=== PATIENT | female | born 1945 | race Caucasian/White ===

== ENCOUNTER 2017-04-24 21:27 | Emergency (ER) | payer MEDICARE ==
[2017-04-24] MEDS ORDERED: Lidocaine 1% w/Epinephrine 1:100K 30 ML VIAL ONE (22:29)
[2017-04-24] MEDS ORDERED: Neosporin Ophth Soln 10 ml Bottle ONE (22:58)
[2017-04-24] MEDS ORDERED: Bacitracin Zinc 1 Packet ONE (23:00)
--- NOTE | 2017-04-25 07:44 | CT ---
PRELIMINARY REPORT/[facility]/EMERGENCY AFTER HOURS PROCEDURE: EXAM: CT Head Without Intravenous Contrast CLINICAL HISTORY: 71 years old, female; Injury or trauma; Fall; Injury details: Lac to lt supraorbital area. TECHNIQUE: Axial computed tomography images of the head/brain without intravenous contrast. COMPARISON: No relevant prior studies available. FINDINGS: Brain: Mild volume loss No hemorrhage. Mild white matter disease. No edema. Presumed left parietal p arafalcine meningioma measuring 8 mm Ventricles: Unremarkable. No ventriculomegaly. Bones/joints: Unremarkable. No acute fracture. Soft tissues: Unremarkable. Sinuses: Mild mucosal thickening. No acute sinusitis. Mastoid air cells: Unremarkable as visualized. No mastoid effusion. IMPRESSION: No intracranial hemorrhage.Please see discussion above. Thank you for allowing us to participate in the care of your patient. Dictated and Authenticated by: Severino Eckert MD 04/24/2017 10:42 PM Central Time ([place] \T\ Jim) FINAL REPORT CT OF THE BRAIN WITHOUT CONTRAST: Date: 04/24/[address] was done following trauma. Axial slices were done, as well as coronal and sagittal reconstructions. There were no prior exams available for comparison. FINDINGS: No intracranial bleeding or extra-axial hematoma seen. Ventricular sizes are normal. There are some small amounts of patchy hypolucency in the deep white matter that is probably due to chronic ischemi c change. A small acute CVA would be missed against this background. There is an 8-10 mm calcified mass density along the left side of the falx cerebri in the parietal r egion. This may be a small, calcified meningioma. The calvarium appears intact. There is no sign of skull fracture. The sphenoid sinus shows no air fl uid level and the mastoid air cells are clear. There is considerable mucosal thickening in the ethmo id sinuses. IMPRESSION: 1. No acute traumatic intracranial findings. 2. Changes consistent with chronic microvascular ischemia. 3. 8-10 mm calcified left parietal parafalcine mass. This is most likely a small meningioma. 4. Mucosal thickening in the ethmoid sinuses. Report in agreement with preliminary reading by vRjoyce. POS: HOME
== END 2017-04-24 23:14 | disposition home or self-care (01) ==
LOC: BURERS 21:27
DX: S06.9X1A Unspecified intracranial injury with loss of consciousness of 30 minutes or less, initial encounter (principal); S01.112A Laceration without foreign body of left eyelid and periocular area, initial encounter; Z79.899 Other long term (current) drug therapy; Z87.891 Personal history of nicotine dependence; W19.XXXA Unspecified fall, initial encounter
CPT/HCPCS: 12013; 70450; 93005; J2001

== ENCOUNTER 2020-01-03 16:03 | Inpatient (IN) | payer MEDICARE ==
[2020-01-03] MEDS ORDERED: Docusate 100 MG CAP PO PRN (20:29)
[2020-01-03] MEDS: Docusate 100 MG CAP PO SCH (22:03)
[2020-01-03] MEDS: Metoprolol Tartrate 25 MG TAB PO SCH (22:03)
[2020-01-03] MEDS: Zolpidem Tartrate 5 MG TAB PO SCH (22:03)
[2020-01-03] MEDS: traMADol HCl 50 MG TAB PO PRN (22:04)
[2020-01-03] MEDS: Acetaminophen 325 MG TAB PO PRN (23:44)
[2020-01-04] MEDS: traMADol HCl 50 MG TAB PO PRN ×3 (04:19→21:49)
[2020-01-04 05:03] LABS: Hemoglobin 14.7 g/dL (12.0-16.0); Platelet Count 339 thou/uL (130-400)
[2020-01-04 05:18] LABS: Calc. Creatinine Clearance 65 mL/min (70-130); Estimated GFR-MDRD Greater than 90
[2020-01-04] MEDS ORDERED: methylPREDNISolone 4 mg Tablet PO SCH (09:00)
[2020-01-04] MEDS ORDERED: Enoxaparin Sodium 40 MG/0.4 ML SYRINGE SC SCH (09:00)
[2020-01-04] MEDS: Metoprolol Tartrate 25 MG TAB PO SCH ×2 (10:00→21:49)
[2020-01-04] MEDS: Magnesium Oxide 400 MG TAB PO SCH (10:01)
[2020-01-04] MEDS: Famotidine 20 MG TAB PO SCH (10:01)
[2020-01-04] MEDS: Docusate 100 MG CAP PO SCH ×2 (10:01→21:49)
[2020-01-04] MEDS: Enoxaparin Sodium 40 MG/0.4 ML SYRINGE SC SCH (10:02)
[2020-01-04] MEDS: Acetaminophen 325 MG TAB PO PRN (10:09)
[2020-01-04] MEDS: Zolpidem Tartrate 5 MG TAB PO SCH (21:49)
[2020-01-05] MEDS: Acetaminophen 325 MG TAB PO PRN (02:19)
[2020-01-05] MEDS: Acetaminophen/Codeine 30-300mg Tablet PO PRN ×2 (03:41→20:58)
[2020-01-05] MEDS: traMADol HCl 50 MG TAB PO PRN ×2 (05:37→13:48)
[2020-01-05 05:46] LABS: #Basophils 0.1 thou/uL (0.0-0.2); #Eosinphils 0.2 thou/uL (0.0-0.7); #Lymphocytes 1.2 thou/uL (1.20-3.40); #Monocytes 0.8 thou/uL (0.11-0.59); #Neutrophils 5.3 thou/uL (1.40-6.50); %Basophils 1.4 % (0.0-1.0); %Eosinophils 2.4 % (0.0-10.0); %Lymphocytes 15.8 % (21.0-51.0); %Monocytes 10.5 % (0.0-10.0); Hemoglobin 13.8 g/dL (12.0-16.0); Mean Corpuscular HGB CONC 35.4 g/dL (32.0-36.0); Mean Corpuscular Hemoglobin 33.3 pg (27.0-31.0); Mean Corpuscular Volume 94.1 fL (78.0-98.0); Mean Platelet Volume 7.6 fL (7.4-10.4); Platelet Count 286 thou/uL (130-400); RBC Distribution Width 11.3 % (11.5-14.5); Red Blood Cell (RBC) Count 4.13 mill/uL (4.20-5.40); White Blood Cell (WBC) Count 7.6 thou/uL (4.8-10.8)
[2020-01-05 05:52] LABS: ALT (SGPT) 23 U/L (8-55); AST (SGOT) 20 U/L (5-34); Albumin 3.2 g/dL (3.4-4.8); Alkaline Phosphatase 329 U/L (40-110); Anion Gap 11 mmol/L (10-20); BUN (Urea Nitrogen) 8 mg/dL (9.8-20.1); Bilirubin, Total 0.4 mg/dL (0.2-1.2); Calc. Creatinine Clearance 58 mL/min (70-130); Calcium 8.1 mg/dL (7.8-10.44); Carbon Dioxide 28 mmol/L (23-31); Chloride 95 mmol/L (98-107); Estimated GFR-MDRD 89; Globulin 2.5 g/dL (2.4-3.5); Glucose 101 mg/dL (83-110); Potassium 4.5 mmol/L (3.5-5.1); Protein, Total 5.7 g/dL (6.0-8.3); Sodium 129 mmol/L (136-145)
[2020-01-05] MEDS: Enoxaparin Sodium 40 MG/0.4 ML SYRINGE SC SCH (09:21)
[2020-01-05] MEDS: Famotidine 20 MG TAB PO SCH (09:21)
[2020-01-05] MEDS: Magnesium Oxide 400 MG TAB PO SCH (09:21)
[2020-01-05] MEDS: Metoprolol Tartrate 25 MG TAB PO SCH ×2 (09:22→20:08)
[2020-01-05] MEDS: Docusate 100 MG CAP PO SCH ×2 (09:22→20:08)
[2020-01-05] MEDS: Pregabalin 50 MG CAP PO SCH ×2 (09:27→20:08)
[2020-01-05] MEDS: methylPREDNISolone 4 mg Tablet PO SCH (09:28)
[2020-01-05] MEDS: Zolpidem Tartrate 5 MG TAB PO SCH (20:08)
[2020-01-06] MEDS: Acetaminophen/Codeine 30-300mg Tablet PO PRN (04:51)
[2020-01-06 05:33] LABS: Hemoglobin 13.6 g/dL (12.0-16.0); Platelet Count 275 thou/uL (130-400)
[2020-01-06 05:41] LABS: Calc. Creatinine Clearance 60 mL/min (70-130); Estimated GFR-MDRD Greater than 90
[2020-01-06] MEDS: traMADol HCl 50 MG TAB PO PRN ×2 (08:47→18:20)
[2020-01-06] MEDS: Enoxaparin Sodium 40 MG/0.4 ML SYRINGE SC SCH (08:51)
[2020-01-06] MEDS: Magnesium Oxide 400 MG TAB PO SCH (08:52)
[2020-01-06] MEDS: Docusate 100 MG CAP PO SCH ×2 (08:52→21:13)
[2020-01-06] MEDS: Famotidine 20 MG TAB PO SCH (08:52)
[2020-01-06] MEDS: Metoprolol Tartrate 25 MG TAB PO SCH ×2 (08:52→21:12)
[2020-01-06] MEDS: methylPREDNISolone 4 mg Tablet PO SCH (08:53)
[2020-01-06] MEDS: Pregabalin 50 MG CAP PO SCH ×2 (08:53→21:12)
[2020-01-06] MEDS: Zolpidem Tartrate 5 MG TAB PO SCH (21:12)
[2020-01-07] MEDS: Melatonin 3 MG TAB PO PRN ×2 (01:06→21:19)
[2020-01-07] MEDS: traMADol HCl 50 MG TAB PO PRN ×2 (01:11→15:05)
[2020-01-07] MEDS: Acetaminophen/Codeine 30-300mg Tablet PO PRN (06:19)
[2020-01-07] MEDS: Metoprolol Tartrate 25 MG TAB PO SCH ×2 (09:16→21:19)
[2020-01-07] MEDS: Famotidine 20 MG TAB PO SCH (09:16)
[2020-01-07] MEDS: methylPREDNISolone 4 mg Tablet PO SCH (09:16)
[2020-01-07] MEDS: Docusate 100 MG CAP PO SCH ×2 (09:16→21:19)
[2020-01-07] MEDS: Pregabalin 50 MG CAP PO SCH ×2 (09:17→21:19)
[2020-01-07] MEDS: Magnesium Oxide 400 MG TAB PO SCH (09:17)
[2020-01-07] MEDS: Enoxaparin Sodium 40 MG/0.4 ML SYRINGE SC SCH (09:19)
[2020-01-07] MEDS: Zolpidem Tartrate 5 MG TAB PO SCH (21:19)
[2020-01-08] MEDS: traMADol HCl 50 MG TAB PO PRN ×3 (03:38→20:53)
[2020-01-08 05:19] LABS: Hemoglobin 13.3 g/dL (12.0-16.0); Platelet Count 271 thou/uL (130-400)
[2020-01-08 05:27] LABS: Calc. Creatinine Clearance 63 mL/min (70-130); Estimated GFR-MDRD Greater than 90
[2020-01-08] MEDS: Acetaminophen/Codeine 30-300mg Tablet PO PRN (06:07)
[2020-01-08 06:32] VITALS: BMI 16.0
[2020-01-08] MEDS: Pregabalin 50 MG CAP PO SCH ×2 (09:11→20:55)
[2020-01-08] MEDS: Enoxaparin Sodium 40 MG/0.4 ML SYRINGE SC SCH (09:11)
[2020-01-08] MEDS: Famotidine 20 MG TAB PO SCH (09:12)
[2020-01-08] MEDS: Metoprolol Tartrate 25 MG TAB PO SCH ×2 (09:13→20:55)
[2020-01-08] MEDS: Magnesium Oxide 400 MG TAB PO SCH (09:13)
[2020-01-08] MEDS: Docusate 100 MG CAP PO SCH ×2 (09:13→20:55)
[2020-01-08] MEDS: methylPREDNISolone 4 mg Tablet PO SCH (09:13)
[2020-01-08] MEDS: Zolpidem Tartrate 5 MG TAB PO SCH (20:54)
[2020-01-08] MEDS: Melatonin 3 MG TAB PO PRN (20:55)
[2020-01-09] MEDS: traMADol HCl 50 MG TAB PO PRN ×3 (04:37→20:34)
[2020-01-09] MEDS: Enoxaparin Sodium 40 MG/0.4 ML SYRINGE SC SCH (08:40)
[2020-01-09] MEDS: Magnesium Oxide 400 MG TAB PO SCH (08:40)
[2020-01-09] MEDS: Metoprolol Tartrate 25 MG TAB PO SCH ×2 (08:40→20:34)
[2020-01-09] MEDS: Docusate 100 MG CAP PO SCH ×2 (08:41→20:32)
[2020-01-09] MEDS: Pregabalin 50 MG CAP PO SCH ×2 (08:41→20:33)
[2020-01-09] MEDS: methylPREDNISolone 4 mg Tablet PO SCH (08:42)
[2020-01-09] MEDS: Famotidine 20 MG TAB PO SCH (08:42)
[2020-01-09] MEDS: Zolpidem Tartrate 5 MG TAB PO SCH (20:32)
[2020-01-10] MEDS: Melatonin 3 MG TAB PO PRN (01:24)
[2020-01-10 06:13] LABS: Platelet Count 262 thou/uL (130-400)
[2020-01-10] MEDS: Acetaminophen/Codeine 30-300mg Tablet PO PRN ×2 (06:40→20:29)
[2020-01-10] MEDS: Docusate 100 MG CAP PO SCH ×2 (08:25→20:29)
[2020-01-10] MEDS: methylPREDNISolone 4 mg Tablet PO SCH (08:26)
[2020-01-10] MEDS: Metoprolol Tartrate 25 MG TAB PO SCH ×2 (08:26→20:29)
[2020-01-10] MEDS: Pregabalin 50 MG CAP PO SCH ×2 (08:26→20:26)
[2020-01-10] MEDS: Enoxaparin Sodium 40 MG/0.4 ML SYRINGE SC SCH (08:27)
[2020-01-10] MEDS: Famotidine 20 MG TAB PO SCH (08:27)
[2020-01-10] MEDS: Magnesium Oxide 400 MG TAB PO SCH (08:27)
[2020-01-10] MEDS ORDERED: ALENDRONATE SODIUM 70 MG PO SCH (09:00)
[2020-01-10] MEDS: traMADol HCl 50 MG TAB PO PRN (13:56)
[2020-01-10] MEDS: Zolpidem Tartrate 5 MG TAB PO SCH (20:25)
[2020-01-11] MEDS: Melatonin 3 MG TAB PO PRN ×2 (02:24→23:40)
[2020-01-11] MEDS: traMADol HCl 50 MG TAB PO PRN ×2 (05:38→15:25)
[2020-01-11] MEDS: Famotidine 20 MG TAB PO SCH (08:28)
[2020-01-11] MEDS: Pregabalin 50 MG CAP PO SCH ×2 (08:29→20:51)
[2020-01-11] MEDS: Docusate 100 MG CAP PO SCH ×2 (08:29→20:54)
[2020-01-11] MEDS: Enoxaparin Sodium 40 MG/0.4 ML SYRINGE SC SCH (08:31)
[2020-01-11] MEDS: Metoprolol Tartrate 25 MG TAB PO SCH ×2 (08:31→20:51)
[2020-01-11] MEDS: methylPREDNISolone 4 mg Tablet PO SCH (08:31)
[2020-01-11] MEDS: Magnesium Oxide 400 MG TAB PO SCH (08:31)
[2020-01-11] MEDS: Zolpidem Tartrate 5 MG TAB PO SCH (20:51)
[2020-01-12] MEDS: Acetaminophen/Codeine 30-300mg Tablet PO PRN (02:23)
[2020-01-12 04:48] LABS: Hemoglobin 13.3 g/dL (12.0-16.0); Platelet Count 243 thou/uL (130-400)
[2020-01-12 04:57] LABS: Calc. Creatinine Clearance 55 mL/min (70-130); Estimated GFR-MDRD Greater than 90
[2020-01-12] MEDS: Enoxaparin Sodium 40 MG/0.4 ML SYRINGE SC SCH (08:32)
[2020-01-12] MEDS: traMADol HCl 50 MG TAB PO PRN ×2 (08:32→20:52)
[2020-01-12] MEDS: Pregabalin 50 MG CAP PO SCH ×2 (08:33→20:53)
[2020-01-12] MEDS: methylPREDNISolone 4 mg Tablet PO SCH (08:33)
[2020-01-12] MEDS: Docusate 100 MG CAP PO SCH ×2 (08:33→20:51)
[2020-01-12] MEDS: Metoprolol Tartrate 25 MG TAB PO SCH ×2 (08:33→20:52)
[2020-01-12] MEDS: Magnesium Oxide 400 MG TAB PO SCH (08:33)
[2020-01-12] MEDS: Famotidine 20 MG TAB PO SCH (08:33)
[2020-01-12] MEDS: Zolpidem Tartrate 5 MG TAB PO SCH (20:51)
[2020-01-13] MEDS: Acetaminophen/Codeine 30-300mg Tablet PO PRN ×2 (02:49→21:15)
[2020-01-13] MEDS: Docusate 100 MG CAP PO SCH ×2 (08:45→21:15)
[2020-01-13] MEDS: Metoprolol Tartrate 25 MG TAB PO SCH ×2 (08:45→21:15)
[2020-01-13] MEDS: Famotidine 20 MG TAB PO SCH (08:46)
[2020-01-13] MEDS: methylPREDNISolone 4 mg Tablet PO SCH (08:46)
[2020-01-13] MEDS: Pregabalin 50 MG CAP PO SCH ×2 (08:46→21:17)
[2020-01-13] MEDS: Enoxaparin Sodium 40 MG/0.4 ML SYRINGE SC SCH (08:47)
[2020-01-13] MEDS: Magnesium Oxide 400 MG TAB PO SCH (08:47)
[2020-01-13] MEDS: traMADol HCl 50 MG TAB PO PRN (11:10)
[2020-01-13] MEDS: Zolpidem Tartrate 5 MG TAB PO SCH (21:14)
[2020-01-13] MEDS: Triamcinolone 0.1% Cream 15 GM TUBE TOP SCH (21:18)
[2020-01-14] MEDS: traMADol HCl 50 MG TAB PO PRN ×2 (03:40→21:11)
[2020-01-14] MEDS: Melatonin 3 MG TAB PO PRN (03:41)
[2020-01-14 05:12] LABS: Hemoglobin 13.4 g/dL (12.0-16.0); Platelet Count 233 thou/uL (130-400)
[2020-01-14 05:22] LABS: Calc. Creatinine Clearance 55 mL/min (70-130); Estimated GFR-MDRD Greater than 90
[2020-01-14] MEDS: Triamcinolone 0.1% Cream 15 GM TUBE TOP SCH ×2 (08:10→20:50)
[2020-01-14] MEDS: Pregabalin 50 MG CAP PO SCH ×2 (08:10→20:48)
[2020-01-14] MEDS: Enoxaparin Sodium 40 MG/0.4 ML SYRINGE SC SCH (08:10)
[2020-01-14] MEDS: Famotidine 20 MG TAB PO SCH (08:10)
[2020-01-14] MEDS: Metoprolol Tartrate 25 MG TAB PO SCH ×2 (08:10→20:48)
[2020-01-14] MEDS: Magnesium Oxide 400 MG TAB PO SCH (08:10)
[2020-01-14] MEDS: Docusate 100 MG CAP PO SCH ×2 (08:11→20:48)
[2020-01-14] MEDS: methylPREDNISolone 4 mg Tablet PO SCH (08:12)
[2020-01-14] MEDS: Acetaminophen/Codeine 30-300mg Tablet PO PRN (14:56)
[2020-01-14] MEDS: Zolpidem Tartrate 5 MG TAB PO SCH (20:48)
[2020-01-15] MEDS: Acetaminophen/Codeine 30-300mg Tablet PO PRN ×2 (01:26→22:10)
[2020-01-15] MEDS: Pregabalin 50 MG CAP PO SCH ×2 (08:19→21:42)
[2020-01-15] MEDS: Enoxaparin Sodium 40 MG/0.4 ML SYRINGE SC SCH (08:21)
[2020-01-15] MEDS: methylPREDNISolone 4 mg Tablet PO SCH (08:21)
[2020-01-15] MEDS: Famotidine 20 MG TAB PO SCH (08:21)
[2020-01-15] MEDS: Docusate 100 MG CAP PO SCH ×2 (08:21→21:42)
[2020-01-15] MEDS: Magnesium Oxide 400 MG TAB PO SCH (08:21)
[2020-01-15] MEDS: Triamcinolone 0.1% Cream 15 GM TUBE TOP SCH ×2 (08:22→21:44)
[2020-01-15] MEDS: Metoprolol Tartrate 25 MG TAB PO SCH ×2 (08:27→21:42)
[2020-01-15] MEDS: traMADol HCl 50 MG TAB PO PRN (11:32)
[2020-01-15] MEDS: Zolpidem Tartrate 5 MG TAB PO SCH (21:42)
[2020-01-16] MEDS: traMADol HCl 50 MG TAB PO PRN (01:58)
[2020-01-16] MEDS: Melatonin 3 MG TAB PO PRN (01:58)
[2020-01-16 05:18] LABS: Calc. Creatinine Clearance 57 mL/min (70-130); Estimated GFR-MDRD Greater than 90
[2020-01-16 05:22] LABS: Hemoglobin 13.6 g/dL (12.0-16.0); Platelet Count 242 thou/uL (130-400)
[2020-01-16] MEDS: Magnesium Oxide 400 MG TAB PO SCH (08:35)
[2020-01-16] MEDS: methylPREDNISolone 4 mg Tablet PO SCH (08:35)
[2020-01-16] MEDS: Pregabalin 50 MG CAP PO SCH (08:35)
[2020-01-16] MEDS: Metoprolol Tartrate 25 MG TAB PO SCH (08:35)
[2020-01-16] MEDS: Famotidine 20 MG TAB PO SCH (08:35)
[2020-01-16] MEDS: Docusate 100 MG CAP PO SCH (08:36)
[2020-01-16] MEDS: Triamcinolone 0.1% Cream 15 GM TUBE TOP SCH (08:37)
[2020-01-16] MEDS: Enoxaparin Sodium 40 MG/0.4 ML SYRINGE SC SCH (08:37)
[2020-01-16 16:15] VITALS: BP 148/70; TEMP 98.3
--- NOTE | 2020-01-16 20:40 | DIS ---
DATE OF ADMISSION: 01/03/2020 DATE OF DISCHARGE: 01/16/2020 ADMISSION DIAGNOSES: Fracture of sacral bone, status post fall; bilateral fracture of L5 transverse process; physical deconditioning; and osteoporosis. SECONDARY DIAGNOSIS: Hypertension, insomnia, and gastroesophageal reflux disease. PROCEDURES: None. HOSPITAL COURSE: A 74-year-old female presented to our facility to participate with physical therapy and occupational therapy status post admission at [facility], where she was treated, status post fall with fractures of her sacral bone and L5 transverse process. The patient has a history of osteoporosis, for which she is treated with Fosamax which was continued during her stay here. She did show improvement in functional status with working with Physical Therapy and Occupational Therapy, and had no significant setbacks during her stay. She has been arranged for durable medical equipment including a walker and a hospital bed to aid ambulation and transfers. The patient's pain was managed without any significant issue and she may continue her usual medications at home; however, she did have one additional medication of pregabalin started during her stay. We will discharge her with gabapentin in place for this. DISPOSITION: The patient will be discharged home, where she lives with her in [place]. She has been set up with [facility] for jail and further physical therapy and occupational therapy. She will follow up with her primary care provider, Dr. Abrahan Calloway in approximately 1 week. DISCHARGE MEDICATIONS: Include; 1. Gabapentin 100 mg b.i.d. 2. Tylenol 325 mg q.6 hours p.r.n. 3. Tramadol 100 mg q.6 hours p.r.n. 4. Ambien 10 mg at bedtime. 5. Fosamax 70 mg once weekly. 6. Metoprolol tartrate 25 mg b.i.d. 7. Melatonin 6 mg at bedtime. 8. Magnesium oxide 400 mg daily. 9. Docusate sodium two caps every three days as needed. Job ID: [id number] [facility]
--- NOTE | 2020-01-18 21:30 | PQF ---
Katy Hester KYLE [id number] CLINICAL DOCUMENTATION CLARIFICATION FORM: POST DISCHARGE Addendum to original discharge summary date: 01/16/20 Late entry note date: 01/19/20 Date:01/18/2020 ATTN:CHARLES DOLAN Please exercise your independent, professional judgment in responding to the clarification form. Clinical indicators are provided on the bottom of this form for your review Please check appropriate box(s): [x ] Protein Calorie Malnutrition: [ ] Mild [ x ] Moderate [ ] Severe [ ] Other Malnutrition (please specify) __ [ ] Underweight without malnutrition [ ] Cachexia [ ] Other diagnosis [ ] Unable to determine In addition, please specify: Present on Admission (POA): [ x ] Yes [ ] No [ ] Unable to determine CLINICAL INDICATORS - SIGNS / SYMPTOMS / LABS BMI-16.0-Documented in FNS Assessment Decreased appetite-Documented in FNS Assessment on 01/09 Reported wt loss-Documented in FNS Assessment on 01/09 Alb-3.2L-Documented in FNS Assessment on 01/09 RISK FACTORS Fracture pf sacral bone-Documented in discharge summary on 01/15 by Charles Dolan MD Bilateral fracture of L5 transverse process-Documented in discharge summary on 01/15 by Charles Dolan MD Physical deconditioning-Documented in discharge summary on 01/15 by Charles Dolan MD HTN-Documented in discharge summary on 01/15 by Charles Dolan MD GERD-Documented in discharge summary on 01/15 by Charles Dolan MD TREATMENT: Continue regular diet-Documented in FNS Assessment on 01/09 Change supplement to ensure pudding BID per pt's tolerance. may also offer high calorie/protein [id number]/crakers, [place], ics cream )-Documented in FNS Assessment on 01/09 Encouraged pt to have bring other food/snaks she likes-Documented in FNS Assessment on 01/09 Regular diet is adequate-Documented in FNS Assessment on 01/09 Moderate Malnutrition (in acute illness) Energy Intake: <75% of estimated energy requirement for > 7 days Weight Loss: 1-2%/1 week; 5%/ 1 month; 7.5%/3 months Other: mild body fat loss; mild muscle mass loss; mild fluid accumulation; Severe Malnutrition (in acute illness) Energy Intake: < 50% of estimated energy requirement for > 5 days Weight Loss: >1-2%/1 week; >5%/1 month; >7.5%/3 months Other: moderate body fat loss; moderate muscle mass loss; moderate- severe fluid accumulation; measurably reduced spray machine operator strength Moderate Malnutrition (in chronic illness) Energy Intake: <75% of estimated energy requirement for >1 month Weight Loss: 5%/1 month; 7.5%/3 months; 10%/6 months; 20%/1 year Other: mild body fat loss; mild muscle mass loss; mild fluid accumulation Severe Malnutrition (in chronic illness) Energy Intake: <75% of estimated energy requirement for >1 month Weight Loss: >5%/1 month; >7.5%/3 months; >10%/6 months; >20%/1 year Other: severe body fat loss; severe muscle mass loss; severe fluid accumulation ; measurably reduced spray machine operator strength [employer] Win[employer] Viewer (This form is maintained as a part of the permanent medical record) 2014 [employer]. All Rights Reserved [email or web address] [phone] COLLEEN
== END 2020-01-16 16:26 | disposition home or self-care (01) | DRG 560 ==
LOC: BURMED 16:03
PROVIDERS: ADMIT Family Medicine; ATTEND Family Medicine
DX: S32.19XD Other fracture of sacrum, subsequent encounter for fracture with routine healing (principal); E87.1 Hypo-osmolality and hyponatremia; E44.0 Moderate protein-calorie malnutrition; Z68.1 Body mass index [BMI] 19.9 or less, adult; S32.058D Other fracture of fifth lumbar vertebra, subsequent encounter for fracture with routine healing; M81.0 Age-related osteoporosis without current pathological fracture; I10 Essential (primary) hypertension; K21.9 Gastro-esophageal reflux disease without esophagitis; W18.39XD Other fall on same level, subsequent encounter
CPT/HCPCS: 36415; 80053; 82565; 85014; 85018; 85025; 85049; J1650; J7509

== ENCOUNTER 2020-01-31 12:31 | Outpatient (CLI) | payer MEDICARE ==
--- NOTE | 2020-01-31 14:58 | RAD ---
LEFT FOREARM 2 VIEWS: DATE: 01/31/2020. FINDINGS: Two views show a healing impacted fracture of the distal radius. A prior film was not available for comparison. There is good alignment of the fragments. The radius and ulna otherwise appear normal. IMPRESSION: Healing impacted fracture of the distal radius. POS: HOME
== END 2020-01-31 12:32 | disposition home or self-care (01) ==
LOC: BURRAD 12:31
PROVIDERS: ATTEND Family Medicine
DX: S52.502D Unspecified fracture of the lower end of left radius, subsequent encounter for closed fracture with routine healing (principal)

== ENCOUNTER 2021-09-19 15:53 | Emergency (ER) | payer MEDICARE | END 2021-09-19 17:00 | disposition home or self-care (01) | LOC: BURERS 15:53 | DX: S60.212A Contusion of left wrist, initial encounter (principal); S20.212A Contusion of left front wall of thorax, initial encounter; I10 Essential (primary) hypertension; W19.XXXA Unspecified fall, initial encounter ==

== ENCOUNTER 2023-06-03 16:25 | Emergency (ER) | payer OTHER, MEDICARE ==
[2023-06-03] MEDS ORDERED: Lidocaine 1% PF 5 ML VIAL ONE (17:59)
[2023-06-03] MEDS ORDERED: Lidocaine 2% w/Epinephrine 1:200K 20 ML VIAL ONE (18:00)
[2023-06-03] MEDS ORDERED: Boostrix 0.5 ML (Tdap) VIAL (>/=7 yrs of age) ONE ×2 (19:34→19:48)
[2023-06-03] MEDS ORDERED: Bacitracin 1 PK ONE (19:34)
== END 2023-06-03 19:52 | disposition home or self-care (01) ==
LOC: BURERS 16:25
DX: S91.311A Laceration without foreign body, right foot, initial encounter (principal); I10 Essential (primary) hypertension; Z87.891 Personal history of nicotine dependence; Z23 Encounter for immunization; W20.8XXA Other cause of strike by thrown, projected or falling object, initial encounter
CPT/HCPCS: 12002; 90471; 90715

== ENCOUNTER 2023-06-14 14:28 | Outpatient (CLI) | payer MEDICARE | END 2023-06-14 14:29 | disposition home or self-care (01) | LOC: BURRAD 14:28 | PROVIDERS: ATTEND Family Medicine | DX: R07.81 Pleurodynia (principal) ==

== ENCOUNTER 2023-10-11 15:12 | Outpatient (CLI) | payer MEDICARE | END 2023-10-11 15:13 | disposition home or self-care (01) | LOC: BURRAD 15:12 | PROVIDERS: ATTEND Family Medicine | DX: M79.671 Pain in right foot (principal) ==

== ENCOUNTER 2025-09-17 16:09 | Outpatient (CLI) | payer MEDICARE | END 2025-09-17 16:10 | disposition home or self-care (01) | LOC: BURRAD 16:09 | PROVIDERS: ATTEND Family Medicine | DX: M25.551 Pain in right hip (principal) | CPT/HCPCS: 72170 ==